=== PATIENT | male | born 1995 | race Caucasian/White ===

== ENCOUNTER 2018-06-28 19:02 | Emergency (ER) | payer OTHER ==
--- NOTE | 2018-06-28 20:01 | XR ---
EXAMINATION TYPE: XR elbow complete RT DATE OF EXAM: 06/28/2018 COMPARISON: NONE HISTORY: Elbow pain TECHNIQUE: 3 views FINDINGS: There is a 3 mm metallic density project in the soft tissues over the anterior distal humer us. I see no fracture nor dislocation. There is no sign of elbow joint effusion. IMPRESSION: Soft tissue foreign body. No fracture seen.
[2018-06-28] MEDS ORDERED: DIPH,PERTUS(ACELL)TETVAC-LF 0.5 ML VIAL IM ONE (22:07)
--- NOTE | 2018-06-28 22:14 | ED ---
General Adult HPI - General Chief complaint: Wound/Laceration Stated complaint: rt arm puncture Time Seen by Provider: 06/28/18 19:38 Source: patient, RN notes reviewed Mode of arrival: ambulatory Limitations: no limitations - History of Present Illness Initial comments: 23-year-old male patient presents to the emergency department for a chief complaint of puncture wound to the right arm. Patient was trying to pry wood off of a pallet when he accidentally hit his arm with the palate. Patient states he came in because it would not stop bleeding. Patient denies any other injuries. Patient denies any difficulty moving the right arm. Patient states pain is controlled. Patient has no other complaints at this time including shortness of breath, chest pain, abdominal pain, nausea or vomiting, headache, or visual changes. - Related Data Previous Rx's Medication Instructions Recorded Cephalexin [Keflex] 500 mg PO Q8HR 10 Days cap 06/28/18 Allergies Allergy/AdvReac Type Severity Reaction Status Date / Time Penicillins Allergy Unknown Verified 06/28/18 19:48 Review of Systems ROS Statement: Those systems with pertinent positive or pertinent negative responses have been documented in the HPI. ROS Other: All systems not noted in ROS Statement are negative. Past Medical History Past Medical History: No Reported History History of Any Multi-Drug Resistant Organisms: None Reported Past Surgical History: No Surgical Hx Reported Past Psychological History: No Psychological Hx Reported Smoking Status: Never smoker Past Alcohol Use History: None Reported Past Drug Use History: None Reported General Exam Limitations: no limitations Head exam: Present: atraumatic, normocephalic, normal inspection Eye exam: Present: normal appearance, PERRL, EOMI. Absent: scleral icterus, conjunctival injection, periorbital swelling ENT exam: Present: normal exam, mucous membranes moist Neck exam: Present: normal inspection, full ROM. Absent: tenderness, meningismus, lymphadenopathy Respiratory exam: Present: normal lung sounds bilaterally. Absent: respiratory distress, wheezes, rales, rhonchi, stridor Cardiovascular Exam: Present: regular rate, normal rhythm, normal heart sounds. Absent: systolic murmur, diastolic murmur, rubs, gallop, clicks Extremities exam: Present: full ROM (Full range of motion of the right upper extremity including the right elbow), tenderness (Tenderness over the laceration site), normal capillary refill (Capillary refill less than 2 seconds in the right upper extremity and radial pulse 2+), other (Sensation intact in the right upper extremities. There is a 3 mm laceration to the antecubital fossa of the right arm. It appears superficial. No superficial foreign bodies noted. No spreading redness or evidence of infection. Bleeding controlled at this time.) Course Vital Signs 06/28/18 19:05 Temperature 98.3 F Pulse Rate 87 Respiratory 16 Rate Blood Pressure 141/77 O2 Sat by Pulse 98 Oximetry Medical Decision Making - Medical Decision Making 23-year-old male presents to the ER for chief complaint of laceration to the right upper extremity. He presented because it would not stop bleeding but bleeding is now controlled in the emergency department. On exam neurovascular intact in the right upper extremity and patient has full range of motion of the right arm. X-ray was ordered to rule out foreign body and a 3 mm metallic density projection in the soft tissue over the anterior distal humerus was found. No fracture. Patient was numbed with 1 ml of 1% lidocaine and wound was explored using sterile forceps. No foreign bodies were found or felt with forceps. No superficial bodies could be felt with palpation. At this time I was unsuccessful in removing foreign body. For this reason patient will follow- up with orthopedics. He will also be put on Keflex and was given a tetanus shot. He will return to the emergency department if he has any worsening symptoms such as fevers or chills or spreading or streaking redness. Disposition Clinical Impression: Laceration, Soft tissues foreign body Disposition: HOME SELF-CARE Condition: Good Instructions: Soft Tissue Foreign Body (ED), Laceration (ED) Additional Instructions: Please take antibiotic as directed. Please monitor for spreading redness, streaking redness, or fever and return if these occur. Return to the emergency department if you have any other worsening symptoms. Prescriptions: Cephalexin [Keflex] 500 mg PO Q8HR 10 Days cap Is patient prescribed a controlled substance at d/c from ED?: No Referrals: Ziggy Mccormack DO [Primary Care Provider] - 1-2 days Asael Jordan MD [Medical Doctor] - 1-2 days Time of Disposition: 22:04
[2018-06-28 22:29] VITALS: BP 132/79; PULSE 77; RESP 18; TEMP 97
== END 2018-06-28 22:32 | disposition home or self-care (01) ==
LOC: EC 19:02
DX: S51.021A Laceration with foreign body of right elbow, initial encounter (principal); Z88.0 Allergy status to penicillin; Z23 Encounter for immunization; W26.8XXA Contact with other sharp object(s), not elsewhere classified, initial encounter
CPT/HCPCS: 10120; 90471; 90715; 99283